=== PATIENT | male | born 1960 | race Caucasian/White ===

== ENCOUNTER 2017-04-21 06:41 | Day surgery (SDC) | payer OTHER ==
[~2017-04-21] VITALS: Ht 180.3 cm; Wt 119.1 kg
[~2017-04-21 06:41] MED LIST: HYDR-3341 PO; LISI-170 PO; LOVA20TA2 PO; METO25TA35 PO; OMEP20TA62 PO
[2017-04-21] MEDS ORDERED: LACTATED RINGERS 1,000 ML IV SCH (07:11)
[2017-04-21] MEDS ORDERED: ASPI-496 PO (07:14)
[2017-04-21] MEDS ORDERED: LIDOCAINE 1%, 2ML SQ PRN (07:30)
[2017-04-21] MEDS ORDERED: BUPIVACAINE/PF 0.5% ONE (07:50)
[2017-04-21] MEDS ORDERED: EPINEPHRINE 1 MG/ML, 1ML ONE (07:50)
[2017-04-21] MEDS ORDERED: FENTANYL PF 250 MCG/5ML ONE (08:04)
[2017-04-21] MEDS ORDERED: MIDAZOLAM 1 MG/ML, 2ML ONE (08:04)
[2017-04-21] MEDS ORDERED: SUCCINYLCHOLINE 20 MG/ML, 10ML ONE (08:05)
[2017-04-21] MEDS ORDERED: PROPOFOL 10 MG/ML, 20ML ONE (08:05)
[2017-04-21] MEDS ORDERED: DEXAMETHASONE 4 MG/ML, 1ML ONE (08:05)
[2017-04-21] MEDS ORDERED: NEOSTIGMINE 1 MG/ML, 10ML ONE (08:05)
[2017-04-21] MEDS ORDERED: GLYCOPYRROLATE 0.2MG/1ML, 5ML ONE (08:05)
[2017-04-21] MEDS ORDERED: ROCURONIUM 10 MG/ML ONE (08:05)
[2017-04-21] MEDS ORDERED: CEFAZOLIN 1,000 MG ONE (08:05)
[2017-04-21] MEDS ORDERED: ONDANSETRON 2MG/ML, 2ML ONE (08:05)
[2017-04-21] MEDS ORDERED: INDOCYANINE GREEN 25 MG VIAL ONE (08:08)
[2017-04-21] MEDS ORDERED: LIDOCAINE 4%, 4 ML SYR/CANN TP ONE (08:11)
[2017-04-21] MEDS ORDERED: HYDROcodone/APAP 7.5-325MG/15ML UDC PO PRN (08:30)
[2017-04-21] MEDS ORDERED: INDOCYANINE GREEN 25 MG VIAL IV ONE (08:30)
[2017-04-21] MEDS ORDERED: FENTANYL PF 100 MCG/2ML IV PRN (08:30)
[2017-04-21] MEDS ORDERED: HYDROmorphone 1 MG/ML, 1ML IV PRN (08:30)
[2017-04-21] MEDS ORDERED: ONDANSETRON 2MG/ML, 2ML IVPush PRN ×2 (08:30→10:30)
[2017-04-21] MEDS ORDERED: hydrALAzine 20 MG/ML, 1ML IV PRN (08:30)
[2017-04-21] MEDS ORDERED: PROMETHAZINE 25 MG/ML, 1ML IV PRN (08:30)
[2017-04-21] MEDS ORDERED: OXYcodone 5 MG/5 ML ORAL.SOL UDC PO PRN (08:30)
[2017-04-21] MEDS ORDERED: ACETAMINOPHEN 325 MG TABLET PO PRN (08:30)
[2017-04-21] MEDS ORDERED: LABETALOL 5MG/ML, 20ML IV PRN (08:30)
[2017-04-21] MEDS ORDERED: HYDROmorphone 1 MG/ML, 1ML ONE (09:23)
[2017-04-21] MEDS ORDERED: FENTANYL PF 100 MCG/2ML ONE (09:52)
[2017-04-21] MEDS ORDERED: morphine SULFATE 10 MG/ML, 1ML IVPush PRN (10:30)
[2017-04-21] MEDS ORDERED: OXYcodone 5 MG/5 ML ORAL.SOL UDC ONE (10:30)
[2017-04-21] MEDS ORDERED: ACETAMINOPHEN 650 MG/20.3 ML UDC ONE (10:30)
[2017-04-21] MEDS ORDERED: PHENYLEPHRINE 10 MG/ML ONE (16:13)
== END 2017-04-21 16:20 ==
LOC: OUT 06:41
PROVIDERS: ATTEND Surgery
DX: K80.10 Calculus of gallbladder with chronic cholecystitis without obstruction (principal); J18.9 Pneumonia, unspecified organism; I10 Essential (primary) hypertension; Z79.82 Long term (current) use of aspirin; E66.9 Obesity, unspecified; Z68.36 Body mass index [BMI] 36.0-36.9, adult; Z87.39 Personal history of other diseases of the musculoskeletal system and connective tissue
CPT/HCPCS: 47562; 88304; J0171; J0330; J0690; J1100; J1170; J2250; J2370; J2405; J2704; J2710; J3010; J3490; J7120; S2900